=== PATIENT | male | born 1945 ===

== ENCOUNTER 2021-10-06 11:06 | Emergency (ER) | payer MEDICARE, BC ==
--- NOTE | 2021-10-06 12:41 | EDM.PDOC ---
ED HPI GENERAL MEDICAL PROBLEM - General Chief Complaint: Skin Complaint Stated Complaint: POSSIBLE SHINGLES Time Seen by Provider: 10/06/21 12:35 Source of Information: Reports: Patient History Limitations: Reports: No Limitations - History of Present Illness INITIAL COMMENTS - FREE TEXT/NARRATIVE: 76 y/o M woke up with a rash under his R arm about the 5th intercostal space. R selena is not painful. Hx of multiple myeloma for many years. Recently received chemo and dexamethasone. Is fully vaccinated with Shingrix but is reportedly immuno compromised. Denies fever, chills, drugs, etoh, cp, db, abd pn, extremity pn. Pt jhon has back pain from his cancer which feels normal for him. Generalized Pain Score (Numeric/FACES): 5 - Related Data Allergies Allergy/AdvReac Type Severity Reaction Status Date / Time piperacillin Allergy Cannot Verified 10/06/21 12:37 Remember Home Meds: Home Meds Pantoprazole Sodium 40 mg PO ASDIRECTED 10/06/21 [History] Potassium Chloride 20 meq PO ASDIRECTED 10/06/21 [History] dexAMETHasone [Dexamethasone] 20 mg PO WEEKLY 10/06/21 [History] ED ROS GENERAL - Review of Systems Review Of Systems: Comprehensive ROS is negative, except as noted in HPI. ED EXAM, SKIN/RASH Exam: See Below Exam Limited By: No Limitations General Appearance: Alert, No Apparent Distress Eye Exam: Bilateral Eye: PERRL Nose: Normal Inspection, Normal Mucosa, No Blood Throat/Mouth: Normal Inspection Head: Atraumatic, Normocephalic Neck: Normal Inspection, Supple, Non-Tender, Full Range of Motion Respiratory/Chest: No Respiratory Distress, Lungs Clear, Normal Breath Sounds, No Accessory Muscle Use, Chest Non-Tender, Other (eerythematous raised vesicualr lesions under R arm about 5th intercostal mid axillary following the dermatome.) Cardiovascular: Normal Peripheral Pulses, Regular Rate, Rhythm, No Edema, No Gallop, No JVD, No Murmur, No Rub GI/Abdominal: Soft, Non-Tender (Male) Exam: Deferred Rectal (Males) Exam: Deferred Back Exam: Normal Inspection, Full Range of Motion, Other (tender under R scapula, reported normal for pt. ) Course - Vital Signs Last Recorded V/S: Last Vital Signs Temp 97.6 F 10/06/21 12:30 Pulse 95 10/06/21 12:30 Resp 14 10/06/21 12:30 BP 143/91 H 10/06/21 12:30 Pulse Ox 97 10/06/21 12:30 Departure - Departure Time of Disposition: 12:39 Disposition: Home, Self-Care 01 Condition: Good Clinical Impression: Shingles Qualifiers: Herpes zoster complications: unspecified herpes zoster complication Qualified Code(s): B02.8 - Zoster with other complications - Discharge Information *PRESCRIPTION DRUG MONITORING PROGRAM REVIEWED*: Not Applicable *COPY OF PRESCRIPTION DRUG MONITORING REPORT IN PATIENT CHRISTOPHER: Not Applicable Instructions: Shingles, [id number] Forms: ED Department Discharge Additional Instructions: RX: Valacyclovir Use tylenol or Ibuprofen for pain as needed. If any new symptoms or concerns develop contact your primary care facility or return to the ER. Sepsis Event Note (ED) - Evaluation Sepsis Screening Result: No Definite Risk - Focused Exam Vital Signs: Vital Signs Temp Pulse Resp BP Pulse Ox 10/06/21 12:30 97.6 F 95 14 143/91 H 97
== END 2021-10-06 12:53 | disposition home or self-care (01) ==
LOC: DL.ED 11:06
DX: B02.9 Zoster without complications (principal); Z88.1 Allergy status to other antibiotic agents
CPT/HCPCS: 99282

== ENCOUNTER 2023-10-20 17:33 | Emergency (ER) | payer MEDICARE, BC ==
[2023-10-20 18:14] LABS: BASOPHILS PERCENT AUTO 0.3 % (0.0-1.0); EOSINOPHILS PERCENT AUTO 1.2 % (1.0-3.0); HEMATOCRIT 29.1 % (40.0-54.0); HEMOGLOBIN 9.5 g/dL (14.0-18.0); LYMPHOCYTES PERCENT AUTO 14.7 % (20.5-50.1); MEAN CORPUSCULAR HEMOGLOBIN 36.1 pg (27.0-34.0); MEAN CORPUSCULAR HGB CONC 32.6 g/dL (33.0-35.0); MEAN CORPUSCULAR VOLUME 110.6 fL (80-100); MONOCYTES PERCENT AUTO 17.4 % (2-8); NEUTROPHILS PERCENT AUTO 66.4 % (42.2-75.2); PLATELET COUNT,PLT 85 10^3/uL (150-450); RED BLOOD CELL COUNT 2.63 10^6/uL (4.6-6.2); WHITE BLOOD CELL COUNT,WBC 3.4 10^3/uL (5.0-10.0)
[2023-10-20 18:35] LABS: CORONAVIRUS COVID-19 NAA NEGATIVE (NEGATIVE); INFLUENZA A NAA NEGATIVE (NEGATIVE); INFLUENZA B NAA NEGATIVE (NEGATIVE); RESPIRATORY SYNCYTIAL VIR NAA NEGATIVE (NEGATIVE)
== END 2023-10-20 19:01 | disposition home or self-care (01) ==
LOC: DL.ED 17:33
DX: R50.9 Fever, unspecified (principal); Z88.0 Allergy status to penicillin; Z20.822 Contact with and (suspected) exposure to COVID-19
CPT/HCPCS: 0241U; 36415; 71046; 85025; 99284